=== PATIENT | male | born 1970 | race Caucasian/White ===

== ENCOUNTER 2019-02-20 10:01 | Outpatient (CLI) | payer MEDICAID, SELFPAY ==
--- NOTE | 2019-02-20 11:33 | PDOC.ANES ---
Date of service: 02/20/19 Time of Service: 11:33 Anesthesia Note Report Anesthesia Note: Mr. 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 He has seen vascular at [facility] and they will evaluate him again in May with CTA and TTE for possible aneurysm repair. He was also recently admitted in DKA with glucose levels of 1400 and an A1c of 11 in January. He has been started on insulin therapy and glucose levels per him seem to run in the mid 100-200's now, usually closer to 200. Given, per his report, vascular potentially repairing his aneurysm as well as his poorly controlled newly diagnosed diabetes, decision made with Mr. Guerra to cancel his knee arthroscopy until his diabetes is better controlled and we have a direction on the management of his newly found thoracic aneurysm. Pt. is in agreement with the plan and will followup for future surgery after his May 2019 vascular appointment and A1c level has been addressed.
--- NOTE | 2019-02-20 11:38 | ANES_ITS ---
Date of service: 02/20/19 Time of Service: 11:33 Anesthesia Note Report Anesthesia Note: Mr. 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 He has seen vascular at [facility] and they will evaluate him again in May with CTA and TTE for possible aneurysm repair. He was also recently admitted in DKA with glucose levels of 1400 and an A1c of 11 in January. He has been started on insulin therapy and glucose levels per him seem to run in the mid 100-200's now, usually closer to 200. Given, per his report, vascular potentially repairing his aneurysm as well as his poorly controlled newly diagnosed diabetes, decision made with Mr. Guerra to cancel his knee arthroscopy until his diabetes is better controlled and we have a direction on the management of his newly found thoracic aneurysm. Pt. is in agreement with the plan and will followup for future surgery after his May 2019 vascular appointment and A1c level has been addressed.
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
== END 2019-02-20 10:21 ==
PROVIDERS: PCP Family Medicine; Visit Provider Orthopaedic Surgery
DX: M25.561 Pain in right knee (principal); Z01.818 Encounter for other preprocedural examination